=== PATIENT | female | born 1975 | race Caucasian/White ===

== ENCOUNTER 2022-01-11 07:51 | Outpatient (CLI) | payer BC | END 2022-01-11 07:52 | disposition home or self-care (01) | LOC: LABBT 07:51 | PROVIDERS: ATTEND Neurological Surgery | DX: M54.16 Radiculopathy, lumbar region (principal); Z20.822 Contact with and (suspected) exposure to COVID-19 | CPT/HCPCS: U0003; U0005 ==

== ENCOUNTER 2022-01-16 07:15 | Day surgery (SDC) | payer BC ==
[2022-01-15 10:37] VITALS: BMI 24.3
[2022-01-16] MEDS ORDERED: EPINEPHrine 1 MG/ML AMP ONE (08:17)
[2022-01-16] MEDS ORDERED: Thrombin 5000 UNITS/5 ML VIAL ONE (08:17)
[2022-01-16] MEDS ORDERED: Bupivacaine PF 0.5% 30 ML VIAL ONE (08:17)
[2022-01-16] MEDS ORDERED: CEFAZOLIN 2 GM VIAL ONE (08:58)
[2022-01-16] MEDS ORDERED: fentaNYL Citrate/PF 100 MCG/2 ML SYRINGE ONE (08:59)
[2022-01-16] MEDS ORDERED: Sodium Chloride 0.9% 100 ML ONE (09:03)
[2022-01-16] MEDS ORDERED: HYDROmorphone 2 MG/ML VIAL ONE (10:17)
[2022-01-16] MEDS ORDERED: Cephalexin 250 MG CAP PO SCH (11:30)
== END 2022-01-16 13:30 | disposition home or self-care (01) ==
LOC: SDC 07:15
PROVIDERS: ATTEND Neurological Surgery
PROC: 01NB0ZZ Release Lumbar Nerve, Open Approach (ICD-10-PCS; principal; 2022-01-16)
DX: M54.16 Radiculopathy, lumbar region (principal); M48.061 Spinal stenosis, lumbar region without neurogenic claudication; E78.5 Hyperlipidemia, unspecified; Z87.891 Personal history of nicotine dependence; Z79.899 Other long term (current) drug therapy; Z88.6 Allergy status to analgesic agent; Z88.8 Allergy status to other drugs, medicaments and biological substances; Z91.040 Latex allergy status; Z98.1 Arthrodesis status; Z98.84 Bariatric surgery status
CPT/HCPCS: 76000; J0171; J0690; J1170; J3490; S0020

== ENCOUNTER 2022-09-12 12:54 | Outpatient (CLI) | payer BC | END 2022-09-12 12:55 | disposition home or self-care (01) | LOC: TBSIIMAG 12:54 | PROVIDERS: ATTEND Neurological Surgery | DX: M54.16 Radiculopathy, lumbar region (principal); M48.061 Spinal stenosis, lumbar region without neurogenic claudication; M43.17 Spondylolisthesis, lumbosacral region; M71.38 Other bursal cyst, other site; Z98.890 Other specified postprocedural states | CPT/HCPCS: 72158 ==

== ENCOUNTER 2023-02-14 08:05 | Outpatient (CLI) | payer BC | END 2023-02-14 08:06 | disposition home or self-care (01) | LOC: BICMAMMO 08:05 | PROVIDERS: ATTEND Internal Medicine | DX: Z12.31 Encounter for screening mammogram for malignant neoplasm of breast (principal); N63.23 Unspecified lump in the left breast, lower outer quadrant | CPT/HCPCS: 77063; 77067 ==

== ENCOUNTER 2025-04-19 07:38 | Outpatient (CLI) | payer BC | END 2025-04-19 07:39 | disposition home or self-care (01) | LOC: BICCT 07:38 | PROVIDERS: ATTEND Internal Medicine | DX: R07.81 Pleurodynia (principal); S20.212A Contusion of left front wall of thorax, initial encounter; S22.32XA Fracture of one rib, left side, initial encounter for closed fracture | CPT/HCPCS: 71250 ==